=== PATIENT | female | born 1985 | race Caucasian/White ===

== ENCOUNTER 2022-03-26 13:16 | Inpatient (IN) | payer OTHER ==
[2022-03-26] MEDS ORDERED: ACETAMINOPHEN 325 MG TABLET (FP) PO PRN ×2 (13:56)
[2022-03-26] MEDS ORDERED: MAGNESIUM HYDROX 2400MG/30ML ORAL SUSPENSION 30 ML CUP PO PRN (13:56)
[2022-03-26] MEDS ORDERED: NICOTINE 10 MG CARTRIDGE (INHALER) IH PRN (13:56)
[2022-03-26] MEDS ORDERED: METHOCARBAMOL 500 MG TABLET PO PRN (13:56)
[2022-03-26] MEDS ORDERED: ONDANSETRON *ODT* 4 MG TABLET SL PRN (13:56)
[2022-03-26] MEDS ORDERED: DICYCLOMINE HCL 10 MG CAPSULE PO PRN (13:56)
[2022-03-26] MEDS ORDERED: MAGNESIUM CITRATE 300 ML BOTTLE PO PRN (13:56)
[2022-03-26] MEDS ORDERED: BENZOCAINE/MENTHOL (CHLORASEPTIC ) LOZENGE MM PRN (13:56)
[2022-03-26] MEDS ORDERED: LOPERAMIDE HCL 2 MG CAPSULE PO PRN (13:56)
[2022-03-26] MEDS ORDERED: BISMUTH SUBSALICYLATE 524 MG/30 ML PO PRN (13:56)
[2022-03-26] MEDS ORDERED: MAG HYDROX/AL HYDROX/SIMETH 30 ML UNIT-DOSE CUP PO PRN (13:56)
[2022-03-26] MEDS ORDERED: NALOXONE HCL (KLOXXADO) 8 MG SPRAY NS PRN (13:56)
[2022-03-26] MEDS ORDERED: BUPRENORPHINE HCL 150 MCG, BUPRENORPHINE HCL 75 MCG BC PRN (13:56)
[2022-03-26] MEDS ORDERED: IBUPROFEN 400 MG TABLET (FP) PO PRN (13:56)
[2022-03-26] MEDS ORDERED: cloNIDine HCL 0.1 MG TABLET PO ONE (15:00)
[2022-03-26] MEDS ORDERED: BUPRENORPHINE HCL 150 MCG, BUPRENORPHINE HCL 75 MCG BC ONE (15:00)
[2022-03-26] MEDS ORDERED: cloNIDine HCL 0.1 MG TABLET PO PRN (17:56)
[2022-03-26 18:00] VITALS: BMI 18.1
[2022-03-26] MEDS ORDERED: BUPRENORPHINE HCL 150 MCG FILM BC ONE (18:42)
[2022-03-26] MEDS ORDERED: BUPRENORPHINE HCL 75 MCG FILM BC ONE (18:43)
[2022-03-26] MEDS: diazePAM 5 MG TABLET PO PRN ×2 (18:51→22:54)
[2022-03-26] MEDS: hydrOXYzine PAMOATE 25 MG CAPSULE (FP) PO SCH ×3 (19:05→22:54)
[2022-03-26] MEDS: NICOTINE 14 MG/24 HOURS TOPICAL PATCH TD SCH (19:06)
[2022-03-26] MEDS: PRENATAL VITAMINS W/ FOLIC ACID TABLET (FP) PO SCH (19:06)
[2022-03-26] MEDS ORDERED: QUEtiapine FUMARATE 25 MG TABLET PO ONE (21:09)
[2022-03-26] MEDS ORDERED: THIAMINE HCL 100 MG TABLET (FP) PO SCH (22:00)
[2022-03-26] MEDS ORDERED: MELATONIN 5 MG TABLETS PO SCH (22:00)
[2022-03-27] MEDS ORDERED: BUPRENORPHINE HCL 150 MCG, BUPRENORPHINE HCL 75 MCG BC PRN
[2022-03-27] MEDS ORDERED: BUPRENORPHINE HCL 150 MCG FILM BC ONE ×2 (04:17→17:20)
[2022-03-27] MEDS ORDERED: BUPRENORPHINE HCL 75 MCG FILM BC ONE ×2 (04:18→17:20)
[2022-03-27] MEDS: BUPRENORPHINE HCL 150 MCG, BUPRENORPHINE HCL 75 MCG BC SCH ×2 (05:25→17:48)
[2022-03-27] MEDS: hydrOXYzine PAMOATE 25 MG CAPSULE (FP) PO SCH ×4 (05:26→17:49)
[2022-03-27] MEDS: diazePAM 5 MG TABLET PO PRN ×2 (07:16→17:50)
[2022-03-27] MEDS ORDERED: ALBUTEROL SO4 HFA INHALER IH PRN (10:51)
[2022-03-27] MEDS: NICOTINE 14 MG/24 HOURS TOPICAL PATCH TD SCH (10:57)
[2022-03-27] MEDS: PRENATAL VITAMINS W/ FOLIC ACID TABLET (FP) PO SCH (10:57)
[2022-03-27 11:00] LABS: HEMATOCRIT 37.5 % (32.4-45.2); HEMOGLOBIN 12.6 GM/dL (10.7-15.3); MCH 31.9 pg (25.7-33.7); MCHC 33.7 g/dl (32.0-36.0); MEAN CELL VOLUME 94.5 fl (80-96); MEAN PLT VOLUME 7.8 fl (7.5-11.1); PLATELET COUNT 405 10^3/uL (134-434); RBC 3.97 M/mm3 (3.60-5.2); RDW 14.2 % (11.6-15.6); WHITE BLOOD COUNT 7.8 K/mm3 (4.0-10.0)
[2022-03-27 11:31] LABS: BLOOD UREA NITROGEN 8.1 mg/dL (7-18); CALCIUM 9.9 mg/dL (8.5-10.1)
[2022-03-27 11:32] LABS: ALBUMIN 3.9 g/dl (3.4-5.0)
[2022-03-27 11:34] LABS: CREATININE 0.8 mg/dL (0.55-1.3)
[2022-03-27 11:35] LABS: BILIRUBIN,TOTAL 0.5 mg/dL (0.2-1); TOT PROT 8.3 g/dl (6.4-8.2)
[2022-03-27 19:57] VITALS: BP 119/75; PULSE 92; TEMP 97.7
[2022-03-27] MEDS ORDERED: QUEtiapine FUMARATE 25 MG TABLET PO SCH (22:00)
[2022-03-28] MEDS ORDERED: BUPRENORPHINE HCL 450 MCG FILM BC SCH (06:00)
[2022-03-28] MEDS ORDERED: diazePAM 5 MG TABLET PO PRN (07:52)
[2022-03-28] MEDS ORDERED: cloNIDine HCL 0.1 MG TABLET PO ONE (07:52)
[2022-03-28] MEDS ORDERED: BUPRENORPHINE HCL 150 MCG, BUPRENORPHINE HCL 75 MCG BC ONE (07:52)
[2022-03-28] MEDS ORDERED: BUPRENORPHINE HCL 150 MCG, BUPRENORPHINE HCL 75 MCG BC PRN (07:52)
[2022-03-28] MEDS ORDERED: cloNIDine HCL 0.1 MG TABLET PO PRN (11:52)
[2022-03-29] MEDS ORDERED: BUPRENORPHINE HCL 150 MCG, BUPRENORPHINE HCL 75 MCG BC PRN
[2022-03-29 00:14] LABS: SARS-CoV-2 NAA Not Detected (Not Detected)
[2022-03-29] MEDS ORDERED: BUPRENORPHINE HCL 150 MCG, BUPRENORPHINE HCL 75 MCG BC SCH (06:00)
[2022-03-29] MEDS ORDERED: BUPRENORPHINE/NALOXONE 4 MG/1 MG FILM PACKET SL SCH (06:00)
[2022-03-30] MEDS ORDERED: BUPRENORPHINE/NALOXONE 8 MG/2 MG FILM PACKET SL ONE (06:00)
[2022-03-30] MEDS ORDERED: BUPRENORPHINE HCL 450 MCG FILM BC SCH (06:00)
[2022-03-31] MEDS ORDERED: BUPRENORPHINE/NALOXONE 4 MG/1 MG FILM PACKET SL SCH (06:00)
[2022-04-01] MEDS ORDERED: BUPRENORPHINE/NALOXONE 8 MG/2 MG FILM PACKET SL ONE (06:00)
== END 2022-03-27 20:15 | disposition left against medical advice (07) | DRG 770 ==
LOC: YASAS 13:16 → Y6N 17:47
PROVIDERS: ADMIT Allergy & Immunology; ATTEND Surgery
PROC: HZ2ZZZZ Detoxification Services for Substance Abuse Treatment (ICD-10-PCS; principal; 2022-03-26)
DX: F11.23 Opioid dependence with withdrawal (principal); F14.20 Cocaine dependence, uncomplicated; F12.10 Cannabis abuse, uncomplicated; F17.210 Nicotine dependence, cigarettes, uncomplicated; F31.9 Bipolar disorder, unspecified; J45.909 Unspecified asthma, uncomplicated; Z28.310 Unvaccinated for COVID-19; Z88.1 Allergy status to other antibiotic agents; Z88.2 Allergy status to sulfonamides; Z56.0 Unemployment, unspecified; Z59.01 Sheltered homelessness
CPT/HCPCS: 36415; 80053; 85027; 86780; 93005; 93010; C9803-CS; J0735; U0003; U0005